=== PATIENT | male | born 1965 | race African-American/Black ===

== ENCOUNTER 2023-07-11 08:51 | Emergency (ER) | payer OTHER ==
[2023-07-11 10:06] VITALS: BP 139/80; PULSE 83; RESP 18; TEMP 98; BMI 26.7
[2023-07-11 10:31] LABS: EPI CELLS 1 /uL (0-25.1); HYALINE CASTS 0 /uL (0-3.1); PH,URINE 8.5 (5.0-8.0); URINE APPEARANCE CLEAR; URINE BACTERIA 881 /uL (0-1359); URINE BILIRUBIN NEGATIVE (NEGATIVE); URINE COLOR YELLOW; URINE GLUCOSE (UA) 2+ (NEGATIVE); URINE KETONE NEGATIVE (NEGATIVE); URINE LEUK ESTERASE 1+ (NEGATIVE); URINE NITRITE NEGATIVE (NEGATIVE); URINE PROTEIN TRACE (NEGATIVE); URINE RBC 21 /uL (0-23.9); URINE WBC 326 /uL (0-25.8)
[2023-07-11 10:45] LABS: BASO % 0.5 % (0-2.0); EOS % 1.1 % (0-4.5); HEMATOCRIT 39.8 % (35.4-49); HEMOGLOBIN 12.8 GM/dL (11.7-16.9); LYMPH % 22.9 % (8-40); MCHC 32.2 g/dl (32.0-35.9); MEAN CELL VOLUME 80.8 fl (80-96); MEAN PLT VOLUME 9.1 fl (7.5-11.1); NEUT % 64.5 % (42.8-82.8); PLATELET COUNT 207 10^3/uL (134-434); POTASSIUM 3.7 mmol/L (3.5-5.1); RBC 4.93 M/mm3 (4.00-5.60); WHITE BLOOD COUNT 6.2 K/mm3 (4.0-10.0)
[2023-07-11 10:46] LABS: BLOOD UREA NITROGEN 14.4 mg/dL (7-18); CALCIUM 9.4 mg/dL (8.5-10.1)
[2023-07-11 10:48] LABS: ALBUMIN 3.5 g/dl (3.4-5.0)
[2023-07-11 10:51] LABS: CREATININE 1.3 mg/dL (0.55-1.3)
[2023-07-11 10:52] LABS: BILIRUBIN,TOTAL 0.5 mg/dL (0.2-1); TOT PROT 7.2 g/dl (6.4-8.2)
[2023-07-11] MEDS ORDERED: PHENAZOPYRIDINE HCL 100 MG TABLET (FP) PO ONE (11:35)
[2023-07-11] MEDS ORDERED: SULFAMETHOXAZOLE/TRIMETHOPRIM 800MG/160MG D.S. TABLET PO ONE (11:35)
[2023-07-11] MEDS ORDERED: PHENAZOPYRIDINE HCL 100 MG TABLET (FP) ONE ×2 (12:23→12:24)
[2023-07-11] MEDS ORDERED: SULFAMETHOXAZOLE/TRIMETHOPRIM 800MG/160MG D.S. TABLET ONE (12:23)
== END 2023-07-11 13:15 | disposition home or self-care (01) ==
LOC: JER 08:51
DX: R30.0 Dysuria (principal); R35.0 Frequency of micturition; R50.9 Fever, unspecified; R19.7 Diarrhea, unspecified; N12 Tubulo-interstitial nephritis, not specified as acute or chronic; M54.50 Low back pain, unspecified; Z20.822 Contact with and (suspected) exposure to COVID-19
CPT/HCPCS: 0241U-QW; 36415; 80053; 81003; 83735; 85025; 87086; 87186; 99283-25